=== PATIENT | male | born 1970 | race American Indian/Alaskan Native ===

== ENCOUNTER 2019-06-20 00:52 | Emergency (ER) | payer BC ==
[~2019-06-20] VITALS: Ht 180.3 cm; Wt 147.0 kg
[2019-06-20] MEDS ORDERED: cyclobenzaprine 10mg tablet PO ONE (01:55)
[2019-06-20] MEDS ORDERED: morphine 10mg/ml inj. IM ONE (01:55)
[2019-06-20] MEDS ORDERED: ketorolac trometh. 30mg/ml inj. IM ONE (01:55)
[2019-06-20] MEDS ORDERED: CYCL-1 PO (02:58)
[2019-06-20] MEDS ORDERED: HYDR-4353 PO (02:58)
[2019-06-20 03:12] VITALS: BP 139/72
== END 2019-06-20 03:15 | disposition home or self-care (01) ==
LOC: ER 00:52
DX: S39.012A Strain of muscle, fascia and tendon of lower back, initial encounter (principal); I10 Essential (primary) hypertension; F10.99 Alcohol use, unspecified with unspecified alcohol-induced disorder; Z79.899 Other long term (current) drug therapy; Y90.9 Presence of alcohol in blood, level not specified; X58.XXXA Exposure to other specified factors, initial encounter; Y93.89 Activity, other specified; Y92.89 Other specified places as the place of occurrence of the external cause; Y99.8 Other external cause status
CPT/HCPCS: 96372; 99283; J1885; J2270

== ENCOUNTER 2019-09-09 16:22 | Emergency (ER) | payer BC, OTHER ==
[~2019-09-09] VITALS: Ht 182.9 cm; Wt 159.0 kg
[~2019-09-09 16:22] MED LIST: CYCL-1 PO; LIDOcaine 1% W/epiNEPHrine 1:100,000 20ml vial ONE
[2019-09-09 16:36] VITALS: BP 176/87
== END 2019-09-09 18:12 | disposition home or self-care (01) ==
LOC: ER 16:23
DX: S01.81XA Laceration without foreign body of other part of head, initial encounter (principal); S40.211A Abrasion of right shoulder, initial encounter; I10 Essential (primary) hypertension; F10.99 Alcohol use, unspecified with unspecified alcohol-induced disorder; Z79.899 Other long term (current) drug therapy; W26.8XXA Contact with other sharp object(s), not elsewhere classified, initial encounter; Y93.89 Activity, other specified; Y92.89 Other specified places as the place of occurrence of the external cause; Y99.8 Other external cause status; Y90.9 Presence of alcohol in blood, level not specified
CPT/HCPCS: 12011; 99283

== ENCOUNTER 2021-04-19 22:00 | Inpatient (IN) | payer BC, OTHER ==
[~2021-04-19] VITALS: Ht 180.3 cm; Wt 125.0 kg
[~2021-04-19 22:00] MED LIST changes: -LIDOcaine 1% W/epiNEPHrine 1:100,000 20ml vial ONE
[2021-04-19] MEDS ORDERED: normal saline 1000ML IV soln IVB ONE (22:50)
[2021-04-19] MEDS ORDERED: iohexol 350MG/ML 100ml bottle IV ONE (22:58)
[2021-04-19 23:12] LABS: BASOPHILS # (AUTO) 0.1 X10'3 (0-0.2); EOSINOPHILS # (AUTO) 0.1 X10'3 (0-0.9); HEMOGLOBIN 10.7 g/dl (14.0-17.9); LYMPHOCYTES # (AUTO) 0.6 X10'3 (1.1-4.8); LYMPHOCYTES % (AUTO) 4.7 % (21-51); MONOCYTES # (AUTO) 1.3 X10'3 (0-0.9)
[2021-04-19 23:13] LABS: EOSINOPHILS % (AUTO) 0.8 % (0-6); HEMATOCRIT 33.8 % (42.0-52.0); MEAN CORPUSCULAR HEMOGLOBIN 24.6 PG (27.0-31.0); MEAN CORPUSCULAR HGB CONC 31.7 g/dL (33.0-36.5); MEAN CORPUSCULAR VOLUME 77.5 FL (78-98); MEAN PLATELET VOLUME 7.2 FL (7.4-10.4); NEUTROPHILS # (AUTO) 9.8 X10'3 (1.8-7.7); NEUTROPHILS % (AUTO) 82.5 % (42-75); PLATELET COUNT 640 X10'3 (140-440); RED BLOOD COUNT 4.36 X10'6 (4.70-6.10); RED CELL DISTRIBUTION WIDTH 17.3 % (11.5-14.5); WHITE BLOOD COUNT 11.9 X10'3 (4.5-11.0)
[2021-04-19 23:25] LABS: D-DIMER 1.33 MG/L FEU (0-0.50)
[2021-04-19 23:31] LABS: ALANINE AMINOTRANSFERASE 38 U/L (12-78); ALBUMIN 2.4 G/DL (3.4-5.0); ALBUMIN/GLOBULIN RATIO 0.4 (1.1-1.5); ALKALINE PHOSPHATASE 109 IU/L (46-116); ANION GAP 6 (8-16); ASPARTATE AMINO TRANSFERASE 45 U/L (10-37); BILIRUBIN,TOTAL 0.4 MG/DL (0.1-1.0); BLOOD UREA NITROGEN 16 MG/DL (7-18); BUN/CREATININE RATIO 12.2 (5.4-32.0); CHLORIDE 98 MMOL/L (99-107); CREATININE 1.31 MG/DL (0.60-1.10); GLUCOSE 107 MG/DL (70-104); SODIUM 134 MMOL/L (135-145); TOTAL CARBON DIOXIDE 29.6 MMOL/L (24-32); TOTAL PROTEIN 8.5 G/DL (6.4-8.2); TROPONIN I < 0.04 NG/ML (0.0-0.05); eGFR 58 ML/MIN
[2021-04-20] VITALS (8 sets, daily range): BP systolic 123–147; BP diastolic 53–90
[2021-04-20] MEDS ORDERED: CefTRIAXone 2gm/D5W 50ml BAG 50 ML IV ONE (02:35)
[2021-04-20] MEDS ORDERED: levoFLOXACIN-Levaquin 750MG/D5 150 ML IV ONE (02:35)
[2021-04-20] MEDS ORDERED: normal saline 1000ML IV soln IV ONE (02:35)
[2021-04-20] MEDS ORDERED: FERR-119 PO (03:26)
[2021-04-20] MEDS ORDERED: diphenhydrAMINE 50 mg/ml inj IV PRN (05:05)
[2021-04-20] MEDS ORDERED: magnesium hydroxide 30ml (MOM) UD suspension PO PRN (05:05)
[2021-04-20] MEDS ORDERED: HYDROcodone/acetaminophen 10/325mg tab PO PRN (05:05)
[2021-04-20] MEDS ORDERED: diphenhydrAMINE 25mg capsule PO PRN (05:05)
[2021-04-20] MEDS ORDERED: mag hydrox/Alum hydrox/simeth 30ml oral suspension PO PRN (05:05)
[2021-04-20] MEDS ORDERED: HYDROcodone/acetaminophen 5mg/325mg tablet PO PRN (05:05)
[2021-04-20] MEDS ORDERED: morphine 2 MG/ML inj. syringe IV PRN ×2 (05:05)
[2021-04-20] MEDS ORDERED: ondansetron 4mg rapidly disintigrating tab PO PRN (05:05)
[2021-04-20] MEDS ORDERED: acetaminophen 650mg rectal suppository RC PRN (05:05)
[2021-04-20] MEDS ORDERED: acetaminophen 325mg tablet PO PRN (05:05)
[2021-04-20] MEDS ORDERED: bisacodyl 10mg suppository rectal RC PRN (05:05)
[2021-04-20] MEDS ORDERED: ondansetron/PF 4mg/2ml inj IV PRN (05:05)
[2021-04-20] MEDS ORDERED: HYDROmorphone inj. 0.5 MG/0.5 ML DISP.SYRIN IV PRN (05:05)
[2021-04-20 06:32] LABS: PARTIAL THROMBOPLASTIN TIME 36 SECONDS (22-32)
[2021-04-20] MEDS: ferrous sulfate 325mg tablet PO SCH ×4 (10:40→21:17)
[2021-04-20] MEDS: docusate sod 100mg capsule PO SCH ×3 (10:40→21:19)
[2021-04-20] MEDS: normal saline 1000ml 1,000 ML IV SCH (10:41)
[2021-04-20] MEDS: pantoprazole 40mg Tablet.DR PO SCH (10:42)
--- NOTE | 2021-04-20 11:31 | NUR ---
IR AT BEDSIDE. Addendum: 04/20/21 at 1132 by Jojo Matias RN RN Amended: Links added.
[2021-04-20] MEDS: acetaminophen 325mg tablet PO PRN (12:18)
--- NOTE | 2021-04-20 12:20 | NUR ---
PT'S CHST TUBE A[facility] IS FULL, IR/MARCINO REPORTS TO CHANGE OUT THE [facility]. Addendum: 04/20/21 at 1221 by Jojo Matias RN, RN Amended: Links added.
--- NOTE | 2021-04-20 12:25 | NUR ---
PT'S CHEST TUBE ATRIUM CHANGED OUT. Addendum: 04/20/21 at 1255 by Jojo Matias RN RN Amended: Links added.
[2021-04-20 12:26] LABS: GLUCOSE,BODY FLUID 88 MG/DL; LDH,BODY FLUID 2200 U/L; TOTAL PROTEIN,BODY FLUID 4.5 G/DL
[2021-04-20 12:29] LABS: BFSOURCE RIGHT PLEURAL FLD; PLEURAL FLUID PH 7.491 (7.63-7.65)
[2021-04-20 12:40] LABS: BF RBC COUNT 405 /CU MM; BF WBC COUNT 1290 /CU MM (0-1000); BFAPPEAR CLEAR; BFCOLOR YELLOW; BFVOLUME 57.5 ML
[2021-04-20 12:45] LABS: LYMPHOCYTES,BODY FLUID 92 %; MONOCYTES,BODY FLUID 7 %; NEUTROPHILS,BODY FLUID 1 %
--- NOTE | 2021-04-20 15:38 | NUR ---
Pt is resting laying supine, respirations even and unlabored no sign of distress noted at this time. Addendum: 04/20/21 at 1539 by Jojo Matias RN, RN Amended: Links added.
--- NOTE | 2021-04-20 17:17 | NUR ---
PT TAKEN TO ROOM 354A ON HOSPITAL BED. REPORT GIVEN TO ROSA NICHOLS. Addendum: 04/20/21 at 1718 by Jojo Matias RN, RN Amended: Links added.
--- NOTE | 2021-04-20 17:20 | NUR ---
Received pt from pas unit, CT placed to suction, bed low call light in reach. Discussed POC pt & spouse verbalize understanding.
--- NOTE | 2021-04-20 19:15 | NUR ---
Patient in room [facility]. I have received report from SIMONE Zavala and had the opportunity to ask questions and assume patient care. Jesica Zavala and I looked over chest tube and it is low continue suction at the 400 l[address]. No signs of a leak.
--- NOTE | 2021-04-20 19:30 | NUR ---
Problems reprioritized. Patient report given, questions answered & plan of care reviewed with Cole.
[2021-04-21] VITALS: BP 132/79
[2021-04-21 06:12] LABS: BASOPHILS # (AUTO) 0.1 X10'3 (0-0.2); EOSINOPHILS # (AUTO) 0.1 X10'3 (0-0.9); MONOCYTES # (AUTO) 1.3 X10'3 (0-0.9); NEUTROPHILS # (AUTO) 9.2 X10'3 (1.8-7.7); WHITE BLOOD COUNT 11.3 X10'3 (4.5-11.0)
[2021-04-21 06:14] LABS: BASOPHILS % (AUTO) 0.9 % (0-1); EOSINOPHILS % (AUTO) 1.2 % (0-6); HEMATOCRIT 32.2 % (42.0-52.0); HEMOGLOBIN 10.1 g/dl (14.0-17.9); LYMPHOCYTES # (AUTO) 0.6 X10'3 (1.1-4.8); LYMPHOCYTES % (AUTO) 5.1 % (21-51); MEAN CORPUSCULAR HEMOGLOBIN 24.3 PG (27.0-31.0); MEAN CORPUSCULAR HGB CONC 31.2 g/dL (33.0-36.5); MEAN CORPUSCULAR VOLUME 77.8 FL (78-98); MEAN PLATELET VOLUME 7.7 FL (7.4-10.4); MONOCYTES % (AUTO) 11.2 % (2-12); NEUTROPHILS % (AUTO) 81.6 % (42-75); PLATELET COUNT 489 X10'3 (140-440); RED BLOOD COUNT 4.14 X10'6 (4.70-6.10); RED CELL DISTRIBUTION WIDTH 17.4 % (11.5-14.5)
--- NOTE | 2021-04-21 06:21 | NUR ---
Problems reprioritized. Patient report given, questions answered & plan of care reviewed with SIMONE Zavala.
--- NOTE | 2021-04-21 06:39 | NUR ---
Patient in room [facility]. I have received report from Serge Galvan and had the opportunity to ask questions and assume patient care.
[2021-04-21 06:47] LABS: ALANINE AMINOTRANSFERASE 29 U/L (12-78); ALBUMIN/GLOBULIN RATIO 0.4 (1.1-1.5); ALKALINE PHOSPHATASE 95 IU/L (46-116); ANION GAP 10 (8-16); BILIRUBIN,TOTAL 0.4 MG/DL (0.1-1.0); BLOOD UREA NITROGEN 18 MG/DL (7-18); BUN/CREATININE RATIO 16.8 (5.4-32.0); CHLORIDE 103 MMOL/L (99-107); CHOL/HDL RATIO 3.1 (0.00-4.99); CHOLESTEROL 123 MG/DL (0-200); CREATININE 1.07 MG/DL (0.60-1.10); GLUCOSE 96 MG/DL (70-104); HDL CHOLESTEROL 40 MG/DL (35-60); LDL CHOLESTEROL 73 MG/DL (50-100); MAGNESIUM 2.2 MG/DL (1.5-2.4); SODIUM 140 MMOL/L (135-145); TOTAL CARBON DIOXIDE 27.5 MMOL/L (24-32); TOTAL PROTEIN 7.5 G/DL (6.4-8.2); TRIGLYCERIDES 65 MG/DL (20-135); eGFR 74 ML/MIN
[2021-04-21 06:59] LABS: ASPARTATE AMINO TRANSFERASE 50 U/L (10-37); PHOSPHORUS 3.7 MG/DL (2.3-4.5); POTASSIUM 4.2 MMOL/L (3.5-5.1)
[2021-04-21 07:00] VITALS: BP 121/80
[2021-04-21 07:02] LABS: CALCIUM 12.1 MG/DL (8.5-10.1)
[2021-04-21 07:03] LABS: HEMOGLOBIN A1C 6.2 % (4.5-6.2)
[2021-04-21] MEDS: pantoprazole 40mg Tablet.DR PO SCH (09:11)
[2021-04-21] MEDS: ferrous sulfate 325mg tablet PO SCH ×4 (09:12→20:33)
[2021-04-21] MEDS: docusate sod 100mg capsule PO SCH ×2 (09:12→20:19)
[2021-04-21 09:17] LABS: ANISOCYTOSIS 1+; MICROCYTOSIS 1+; PLATELET ESTIMATE INCREASED
[2021-04-21 09:18] LABS: ELLIPTOCYTES FEW
[2021-04-21 11:00] VITALS: BP 141/84
[2021-04-21 18:00] VITALS: BP 129/75
--- NOTE | 2021-04-21 18:57 | NUR ---
Patient in room [facility] 354A. I have received report from SIMONE Zavala and had the opportunity to ask questions and assume patient care.
--- NOTE | 2021-04-21 19:12 | NUR ---
Problems reprioritized. Patient report given, questions answered & plan of care reviewed with SIMONE Castro.
[2021-04-21] MEDS: normal saline 1000ml 1,000 ML IV SCH ×2 (20:19→22:09)
[2021-04-22] VITALS: BP 120/74
[2021-04-22 06:18] LABS: BASOPHILS # (AUTO) 0.1 X10'3 (0-0.2); BASOPHILS % (AUTO) 1.1 % (0-1); EOSINOPHILS # (AUTO) 0.3 X10'3 (0-0.9); EOSINOPHILS % (AUTO) 2.7 % (0-6); HEMATOCRIT 30.8 % (42.0-52.0); HEMOGLOBIN 9.9 g/dl (14.0-17.9); LYMPHOCYTES # (AUTO) 0.5 X10'3 (1.1-4.8); LYMPHOCYTES % (AUTO) 5.1 % (21-51); MEAN CORPUSCULAR HEMOGLOBIN 24.9 PG (27.0-31.0); MEAN CORPUSCULAR VOLUME 77.7 FL (78-98); MEAN PLATELET VOLUME 7.2 FL (7.4-10.4); MONOCYTES # (AUTO) 1.2 X10'3 (0-0.9); MONOCYTES % (AUTO) 12.1 % (2-12); NEUTROPHILS # (AUTO) 7.6 X10'3 (1.8-7.7); PLATELET COUNT 491 X10'3 (140-440); RED BLOOD COUNT 3.97 X10'6 (4.70-6.10); RED CELL DISTRIBUTION WIDTH 17.5 % (11.5-14.5); WHITE BLOOD COUNT 9.6 X10'3 (4.5-11.0)
[2021-04-22 06:48] LABS: ALANINE AMINOTRANSFERASE 25 U/L (12-78); ALBUMIN/GLOBULIN RATIO 0.4 (1.1-1.5); ALKALINE PHOSPHATASE 94 IU/L (46-116); ANION GAP 7 (8-16); ASPARTATE AMINO TRANSFERASE 31 U/L (10-37); BILIRUBIN,TOTAL 0.4 MG/DL (0.1-1.0); BLOOD UREA NITROGEN 19 MG/DL (7-18); BUN/CREATININE RATIO 16.2 (5.4-32.0); CHLORIDE 104 MMOL/L (99-107); CREATININE 1.17 MG/DL (0.60-1.10); GLUCOSE 92 MG/DL (70-104); POTASSIUM 3.5 MMOL/L (3.5-5.1); SODIUM 140 MMOL/L (135-145); TOTAL CARBON DIOXIDE 28.8 MMOL/L (24-32); TOTAL PROTEIN 7.1 G/DL (6.4-8.2); eGFR 67 ML/MIN
--- NOTE | 2021-04-22 06:48 | NUR ---
Problems reprioritized. Patient report given, questions answered & plan of care reviewed with SIMONE Baker.
--- NOTE | 2021-04-22 06:50 | NUR ---
Patient in room [facility]. I have received report from Gloria NICHOLS and had the opportunity to ask questions and assume patient care.
[2021-04-22 06:58] LABS: CALCIUM 12.4 MG/DL (8.5-10.1)
--- NOTE | 2021-04-22 07:03 | NUR ---
PAGER ID: [phone] MESSAGE: re: 354A, Fermin Garsia Critical value Calcium 12.4. Orders? Thank you, Olivia [phone] Will continue to monitor. association executive notified
[2021-04-22 07:30] VITALS: BP 131/75
[2021-04-22] MEDS: pantoprazole 40mg Tablet.DR PO SCH (08:57)
[2021-04-22] MEDS: ferrous sulfate 325mg tablet PO SCH ×4 (08:57→20:59)
[2021-04-22] MEDS: docusate sod 100mg capsule PO SCH ×2 (08:57→20:59)
[2021-04-22] MEDS ORDERED: ALTEPLASE IV ONE (09:50)
[2021-04-22] MEDS ORDERED: NORMAL SALINE IV ONE (09:50)
--- NOTE | 2021-04-22 10:00 | NUR ---
Tpa administered into chest tube by DEVANTE Dumont Will continue to monitor.
[2021-04-22 11:00] VITALS: BP 147/80
[2021-04-22] MEDS: normal saline 1000ml 1,000 ML IV SCH (12:01)
[2021-04-22 12:54] VITALS: BP 134/80
[2021-04-22] MEDS: acetaminophen 325mg tablet PO PRN (14:50)
--- NOTE | 2021-04-22 15:00 | NUR ---
Chest tube returned to suction as ordered per MD orders. Will continue to monitor.
--- NOTE | 2021-04-22 16:45 | NUR ---
PAGER ID: [phone] MESSAGE: re: room 354A, Fermin Garsia Patient states he's never had a colonoscopy. Olivia [phone]
--- NOTE | 2021-04-22 17:51 | NUR ---
PAGER ID: [phone] MESSAGE: re: room 354A Fermin Garsia Please call regarding CT orders. thank you, Olivia [phone]
[2021-04-22 17:55] LABS: % IRON SATURATION 14 % (11-46); IRON 20 UG/DL (53-167); TOTAL IRON BINDING CAPACITY 140 UG/DL (259-388)
[2021-04-22 18:00] VITALS: BP 142/84
[2021-04-22] MEDS ORDERED: diatr meglu/diatrizoate 30ml oral sol.-(3 dose) bottle PO SCH ×2 (18:00→21:00)
--- NOTE | 2021-04-22 18:26 | NUR ---
room 354A, Fermin Garsia please clarify: CT of abdomen in a.m.? because you typed in the comments "bowel prep, pt never had a colonoscopy". Thank you, Olivia [phone] Per phone call from Dr Forbes, she will d/c orders for a.m. CT until she speaks with the GI doctor. shift manager informed. Will continue to monitor.
--- NOTE | 2021-04-22 18:33 | NUR ---
Problems reprioritized. Patient report given, questions answered & plan of care reviewed with Cole NICHOLS.
--- NOTE | 2021-04-22 19:35 | NUR ---
Patient in room [facility]. I have received report from SIMONE Baker and had the opportunity to ask questions and assume patient care.
--- NOTE | 2021-04-22 19:37 | NUR ---
I have received report from SIMONE Baker and had the opportunity to ask questions and assume patient care. Addendum: 04/22/21 at 1943 by Cole Eagle RN SIMONE Restrepo and I are assuming care of patient
[2021-04-23] VITALS: BP 133/76
[2021-04-23] MEDS: normal saline 1000ml 1,000 ML IV SCH ×3 (00:25→20:48)
[2021-04-23 06:00] LABS: BASOPHILS # (AUTO) 0.1 X10'3 (0-0.2); BASOPHILS % (AUTO) 0.8 % (0-1); EOSINOPHILS # (AUTO) 0.3 X10'3 (0-0.9); EOSINOPHILS % (AUTO) 2.7 % (0-6); HEMATOCRIT 29.7 % (42.0-52.0); HEMOGLOBIN 9.5 g/dl (14.0-17.9); LYMPHOCYTES # (AUTO) 0.5 X10'3 (1.1-4.8); MEAN CORPUSCULAR HEMOGLOBIN 24.5 PG (27.0-31.0); MEAN CORPUSCULAR HGB CONC 32.1 g/dL (33.0-36.5); MEAN CORPUSCULAR VOLUME 76.3 FL (78-98); MEAN PLATELET VOLUME 7.3 FL (7.4-10.4); MONOCYTES # (AUTO) 1.2 X10'3 (0-0.9); MONOCYTES % (AUTO) 12.9 % (2-12); NEUTROPHILS # (AUTO) 7.3 X10'3 (1.8-7.7); NEUTROPHILS % (AUTO) 78.6 % (42-75); PLATELET COUNT 486 X10'3 (140-440); RED BLOOD COUNT 3.89 X10'6 (4.70-6.10); RED CELL DISTRIBUTION WIDTH 17.6 % (11.5-14.5); WHITE BLOOD COUNT 9.3 X10'3 (4.5-11.0)
[2021-04-23 06:11] LABS: ALANINE AMINOTRANSFERASE 23 U/L (12-78); ALBUMIN 1.9 G/DL (3.4-5.0); ALBUMIN/GLOBULIN RATIO 0.4 (1.1-1.5); ALKALINE PHOSPHATASE 94 IU/L (46-116); ANION GAP 4 (8-16); ASPARTATE AMINO TRANSFERASE 32 U/L (10-37); BILIRUBIN,TOTAL 0.3 MG/DL (0.1-1.0); BLOOD UREA NITROGEN 21 MG/DL (7-18); BUN/CREATININE RATIO 17.2 (5.4-32.0); CHLORIDE 106 MMOL/L (99-107); CREATININE 1.22 MG/DL (0.60-1.10); GLUCOSE 91 MG/DL (70-104); POTASSIUM 3.6 MMOL/L (3.5-5.1); SODIUM 139 MMOL/L (135-145); TOTAL CARBON DIOXIDE 29.5 MMOL/L (24-32); TOTAL PROTEIN 6.7 G/DL (6.4-8.2); eGFR 63 ML/MIN
[2021-04-23 06:14] LABS: CALCIUM 12.2 MG/DL (8.5-10.1)
--- NOTE | 2021-04-23 06:31 | NUR ---
Problems reprioritized. Patient report given, questions answered & plan of care reviewed with SIMONE Mata.
--- NOTE | 2021-04-23 06:33 | NUR ---
I agree with charting, assessment, and report done by SIMONE Restrepo new hire
--- NOTE | 2021-04-23 06:43 | NUR ---
Patient in room [facility]. I have received report from SIMONE Galvan and had the opportunity to ask questions and assume patient care.
[2021-04-23 07:00] VITALS: BP 124/77
[2021-04-23] MEDS: pantoprazole 40mg Tablet.DR PO SCH (08:03)
[2021-04-23] MEDS: docusate sod 100mg capsule PO SCH ×2 (08:03→20:49)
[2021-04-23] MEDS: ferrous sulfate 325mg tablet PO SCH ×4 (08:03→20:49)
[2021-04-23] MEDS ORDERED: NORMAL SALINE IV ONE (08:30)
[2021-04-23] MEDS ORDERED: ALTEPLASE IV ONE (08:30)
[2021-04-23] MEDS ORDERED: ANGIO IV ONE (08:30)
--- NOTE | 2021-04-23 10:08 | NUR ---
Bryan Dumont in to see patient and administer TPA in chest tube. No complaints from patient. Will continue to suhail.
[2021-04-23 12:19] VITALS: BP 116/54
[2021-04-23 12:20] VITALS: BP 133/75
[2021-04-23] MEDS: acetaminophen 325mg tablet PO PRN (13:28)
--- NOTE | 2021-04-23 15:00 | NUR ---
Stopcock to chest tube turned back to inline flow.
[2021-04-23] MEDS ORDERED: iohexol 300mg/ml 100ml inj. ONE (16:48)
[2021-04-23 18:00] VITALS: BP 128/78
--- NOTE | 2021-04-23 18:44 | NUR ---
Problems reprioritized. Patient report given, questions answered & plan of care reviewed with SIMONE Lux.
[2021-04-24] VITALS: BP 129/64
--- NOTE | 2021-04-24 04:29 | NUR ---
Patient in room [facility]. I have received report from Onesimo NICHOLS and had the opportunity to ask questions and assume patient care.
[2021-04-24 06:05] LABS: BASOPHILS # (AUTO) 0.1 X10'3 (0-0.2); BASOPHILS % (AUTO) 0.9 % (0-1); EOSINOPHILS # (AUTO) 0.4 X10'3 (0-0.9); EOSINOPHILS % (AUTO) 4.2 % (0-6); HEMOGLOBIN 9.4 g/dl (14.0-17.9); LYMPHOCYTES # (AUTO) 0.5 X10'3 (1.1-4.8); LYMPHOCYTES % (AUTO) 5.4 % (21-51); MEAN CORPUSCULAR HEMOGLOBIN 24.4 PG (27.0-31.0); MEAN CORPUSCULAR HGB CONC 31.5 g/dL (33.0-36.5); MEAN CORPUSCULAR VOLUME 77.4 FL (78-98); MEAN PLATELET VOLUME 7.1 FL (7.4-10.4); MONOCYTES # (AUTO) 1.1 X10'3 (0-0.9); NEUTROPHILS # (AUTO) 6.8 X10'3 (1.8-7.7); NEUTROPHILS % (AUTO) 76.5 % (42-75); PLATELET COUNT 489 X10'3 (140-440); RED BLOOD COUNT 3.87 X10'6 (4.70-6.10); RED CELL DISTRIBUTION WIDTH 17.3 % (11.5-14.5); WHITE BLOOD COUNT 8.8 X10'3 (4.5-11.0)
[2021-04-24 06:25] LABS: ALANINE AMINOTRANSFERASE 30 U/L (12-78); ALBUMIN 1.8 G/DL (3.4-5.0); ALBUMIN/GLOBULIN RATIO 0.4 (1.1-1.5); ALKALINE PHOSPHATASE 95 IU/L (46-116); ANION GAP 6 (8-16); ASPARTATE AMINO TRANSFERASE 35 U/L (10-37); BILIRUBIN,TOTAL 0.4 MG/DL (0.1-1.0); BLOOD UREA NITROGEN 17 MG/DL (7-18); BUN/CREATININE RATIO 15.3 (5.4-32.0); CALCIUM 11.6 MG/DL (8.5-10.1); CHLORIDE 104 MMOL/L (99-107); CREATININE 1.11 MG/DL (0.60-1.10); GLUCOSE 87 MG/DL (70-104); POTASSIUM 3.6 MMOL/L (3.5-5.1); SODIUM 139 MMOL/L (135-145); TOTAL CARBON DIOXIDE 28.6 MMOL/L (24-32); TOTAL PROTEIN 6.8 G/DL (6.4-8.2); eGFR 71 ML/MIN
--- NOTE | 2021-04-24 06:30 | NUR ---
Patient in room [facility]. I have received report from Jose J NICHOLS and had the opportunity to ask questions and assume patient care.
[2021-04-24 07:00] VITALS: BP 120/53
[2021-04-24] MEDS: normal saline 1000ml 1,000 ML IV SCH ×2 (07:29→16:11)
[2021-04-24] MEDS: ferrous sulfate 325mg tablet PO SCH ×4 (07:31→20:00)
[2021-04-24] MEDS: pantoprazole 40mg Tablet.DR PO SCH (07:31)
[2021-04-24] MEDS: docusate sod 100mg capsule PO SCH ×2 (07:31→19:59)
[2021-04-24] MEDS: CefTRIAXone 2gm/D5W 50ml BAG 50 ML IV SCH (07:31)
[2021-04-24 07:41] VITALS: BP 131/78
[2021-04-24 11:17] LABS: OCCULT BLOOD STOOL NEGATIVE (Neg)
[2021-04-24 12:00] VITALS: BP 136/79
--- NOTE | 2021-04-24 15:41 | NUR ---
Per Dr Forbes when patient is discharged the discharging doctor needs to contact Dr Reid and let him know so he can schedule patient for out patient Bronchoscopy.
[2021-04-24 18:00] VITALS: BP 150/77
--- NOTE | 2021-04-24 18:27 | NUR ---
Problems reprioritized. Patient report given, questions answered & plan of care reviewed with Jose J NICHOLS.
--- NOTE | 2021-04-24 18:35 | NUR ---
Patient in room [facility]. I have received report from Twila NICHOLS and had the opportunity to ask questions and assume patient care.
[2021-04-24] MEDS: lactobacillus rhamnosus 10,000 MMU CELLS/CAPSULE PO SCH (19:59)
[2021-04-25] VITALS: BP 137/80
[2021-04-25 05:55] LABS: BASOPHILS # (AUTO) 0.1 X10'3 (0-0.2); BASOPHILS % (AUTO) 1.1 % (0-1); EOSINOPHILS # (AUTO) 0.3 X10'3 (0-0.9); HEMATOCRIT 29.7 % (42.0-52.0); HEMOGLOBIN 9.4 g/dl (14.0-17.9); LYMPHOCYTES # (AUTO) 0.4 X10'3 (1.1-4.8); LYMPHOCYTES % (AUTO) 4.8 % (21-51); MEAN CORPUSCULAR HEMOGLOBIN 24.5 PG (27.0-31.0); MEAN CORPUSCULAR HGB CONC 31.6 g/dL (33.0-36.5); MEAN CORPUSCULAR VOLUME 77.6 FL (78-98); MEAN PLATELET VOLUME 7.3 FL (7.4-10.4); MONOCYTES # (AUTO) 1.2 X10'3 (0-0.9); MONOCYTES % (AUTO) 14.3 % (2-12); NEUTROPHILS # (AUTO) 6.5 X10'3 (1.8-7.7); NEUTROPHILS % (AUTO) 75.8 % (42-75); PLATELET COUNT 463 X10'3 (140-440); RED BLOOD COUNT 3.83 X10'6 (4.70-6.10); RED CELL DISTRIBUTION WIDTH 17.2 % (11.5-14.5); WHITE BLOOD COUNT 8.5 X10'3 (4.5-11.0)
[2021-04-25 06:35] LABS: ALANINE AMINOTRANSFERASE 25 U/L (12-78); ALBUMIN 1.8 G/DL (3.4-5.0); ALBUMIN/GLOBULIN RATIO 0.4 (1.1-1.5); ALKALINE PHOSPHATASE 100 IU/L (46-116); ANION GAP 7 (8-16); ASPARTATE AMINO TRANSFERASE 34 U/L (10-37); BILIRUBIN,TOTAL 0.3 MG/DL (0.1-1.0); BLOOD UREA NITROGEN 16 MG/DL (7-18); BUN/CREATININE RATIO 15.5 (5.4-32.0); CALCIUM 11.6 MG/DL (8.5-10.1); CHLORIDE 105 MMOL/L (99-107); CREATININE 1.03 MG/DL (0.60-1.10); GLUCOSE 89 MG/DL (70-104); POTASSIUM 3.4 MMOL/L (3.5-5.1); SODIUM 141 MMOL/L (135-145); TOTAL CARBON DIOXIDE 29.4 MMOL/L (24-32); TOTAL PROTEIN 6.6 G/DL (6.4-8.2); eGFR 77 ML/MIN
--- NOTE | 2021-04-25 06:40 | NUR ---
Problems reprioritized. Patient report given, questions answered & plan of care reviewed with Twila NICHOLS.
[2021-04-25 07:00] VITALS: BP 132/82
[2021-04-25] MEDS: docusate sod 100mg capsule PO SCH ×2 (07:15→20:00)
[2021-04-25] MEDS: lactobacillus rhamnosus 10,000 MMU CELLS/CAPSULE PO SCH ×2 (07:15→20:00)
[2021-04-25] MEDS: ferrous sulfate 325mg tablet PO SCH ×4 (07:15→21:00)
[2021-04-25] MEDS: CefTRIAXone 2gm/D5W 50ml BAG 50 ML IV SCH (07:15)
[2021-04-25] MEDS: pantoprazole 40mg Tablet.DR PO SCH (07:15)
[2021-04-25] MEDS ORDERED: magnesium 4gm in 100ml NS 100 ML IV PRN (10:30)
[2021-04-25] MEDS ORDERED: potassium Cl 20 mEq SR tablet PO PRN (10:30)
[2021-04-25] MEDS ORDERED: magnesium Cl slow-release 64mg tablet PO PRN (10:30)
[2021-04-25] MEDS ORDERED: potassium Cl 40MEQ/1/2NS 520ml 520 ML IV PRN (10:30)
--- NOTE | 2021-04-25 10:32 | NUR ---
Received orders from Dr Blevins for add on Mg , Electrolyte protocol and chest xray in am
--- NOTE | 2021-04-25 10:57 | NUR ---
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 Currently has chest tube in place. Pt able to eat well, mostly 75-100% of meals on Regular diet meeting needs. No N/V/D noted, LBM 04/24. No nutrition intervention implemented at this time, will continue to monitor. Recs: 1. Continue Regular diet as tolerated 2. Bowel care per rx 3. Weekly wts Addendum: 04/25/21 at [address] Amended: Links added.
[2021-04-25 11:00] VITALS: BP 135/85
[2021-04-25] MEDS: normal saline 1000ml 1,000 ML IV SCH ×3 (11:01→23:17)
[2021-04-25 11:15] LABS: MAGNESIUM 2.2 MG/DL (1.5-2.4)
[2021-04-25 12:15] LABS: CARBOHYDRATE ANTIGEN 19-9 <2 U/mL (0-35); CARCINOEMBRYONIC ANTIGEN 0.6 ng/mL (0.0-4.7)
[2021-04-25] MEDS: potassium Cl 20 mEq SR tablet PO PRN ×3 (12:35→23:17)
[2021-04-25] MEDS ORDERED: furosemide 40mg/4ml inj IV ONE (15:45)
[2021-04-25 16:05] VITALS: BP 133/82
--- NOTE | 2021-04-25 18:31 | NUR ---
Problems reprioritized. Patient report given, questions answered & plan of care reviewed with Neyda NICHOLS.
[2021-04-25 19:00] VITALS: BP 120/75
[2021-04-25] MEDS: K and/or MAG REPLACEMENT MC SCH ×2 (20:00→23:23)
[2021-04-26 00:05] VITALS: BP 122/74
--- NOTE | 2021-04-26 06:59 | NUR ---
Patient in room [facility]A. I have received report from SIMONE AVALOS and had the opportunity to ask questions and assume patient care
[2021-04-26 07:00] VITALS: BP 139/79
[2021-04-26] MEDS: CefTRIAXone 2gm/D5W 50ml BAG 50 ML IV SCH (07:18)
[2021-04-26] MEDS: docusate sod 100mg capsule PO SCH (07:26)
[2021-04-26] MEDS: lactobacillus rhamnosus 10,000 MMU CELLS/CAPSULE PO SCH (07:26)
[2021-04-26] MEDS: ferrous sulfate 325mg tablet PO SCH ×2 (07:26→13:17)
[2021-04-26] MEDS: pantoprazole 40mg Tablet.DR PO SCH (07:26)
[2021-04-26 08:00] VITALS: BP 139/79
[2021-04-26] MEDS: K and/or MAG REPLACEMENT MC SCH (08:00)
--- NOTE | 2021-04-26 08:42 | NUR ---
Patient in room [facility]. I have received report from Anne NICHOLS and had the opportunity to ask questions and assume patient care.
[2021-04-26 09:55] LABS: BASOPHILS # (AUTO) 0.1 X10'3 (0-0.2); EOSINOPHILS # (AUTO) 0.3 X10'3 (0-0.9); EOSINOPHILS % (AUTO) 2.9 % (0-6); HEMATOCRIT 31.5 % (42.0-52.0); HEMOGLOBIN 10.2 g/dl (14.0-17.9); LYMPHOCYTES # (AUTO) 0.4 X10'3 (1.1-4.8); LYMPHOCYTES % (AUTO) 4.3 % (21-51); MEAN CORPUSCULAR HGB CONC 32.6 g/dL (33.0-36.5); MEAN CORPUSCULAR VOLUME 76.6 FL (78-98); MONOCYTES # (AUTO) 0.8 X10'3 (0-0.9); MONOCYTES % (AUTO) 9.1 % (2-12); NEUTROPHILS # (AUTO) 7.1 X10'3 (1.8-7.7); NEUTROPHILS % (AUTO) 82.7 % (42-75); PLATELET COUNT 470 X10'3 (140-440); RED BLOOD COUNT 4.11 X10'6 (4.70-6.10); RED CELL DISTRIBUTION WIDTH 17.5 % (11.5-14.5); WHITE BLOOD COUNT 8.6 X10'3 (4.5-11.0)
[2021-04-26 10:19] LABS: ALANINE AMINOTRANSFERASE 29 U/L (12-78); ALBUMIN 1.9 G/DL (3.4-5.0); ALBUMIN/GLOBULIN RATIO 0.4 (1.1-1.5); ALKALINE PHOSPHATASE 115 IU/L (46-116); ANION GAP 8 (8-16); ASPARTATE AMINO TRANSFERASE 37 U/L (10-37); BILIRUBIN,TOTAL 0.3 MG/DL (0.1-1.0); BLOOD UREA NITROGEN 15 MG/DL (7-18); BUN/CREATININE RATIO 12.5 (5.4-32.0); CALCIUM 11.9 MG/DL (8.5-10.1); CHLORIDE 104 MMOL/L (99-107); GLUCOSE 133 MG/DL (70-104); POTASSIUM 3.6 MMOL/L (3.5-5.1); SODIUM 138 MMOL/L (135-145); TOTAL PROTEIN 7.2 G/DL (6.4-8.2); eGFR 65 ML/MIN
[2021-04-26 11:00] VITALS: BP 138/85
[2021-04-26] MEDS ORDERED: CEFD300C22 PO (11:43)
--- NOTE | 2021-04-26 14:10 | NUR ---
Pt DC to home with . Pt is A & O and in no apparent distress. pt and verbalize understanding of ALL discharge orders and the importance of following up with Dr Reid as an outpatient. pt educated on medication/antibiotics and making all antibiotics are taken. pt's IV was removed intact. and him help him get dress and was wheeled to the front where took him home.
== END 2021-04-26 14:10 | disposition home or self-care (01) | DRG 193 ==
LOC: ER 22:01 → ED HOLD 04-20 05:10 → PAS IN 04-20 06:48 → SUR 3N 04-20 17:18
PROVIDERS: ADMIT Family Medicine; ATTEND Family Medicine
PROC: B32T1ZZ Computerized Tomography (CT Scan) of Left Pulmonary Artery using Low Osmolar Contrast (ICD-10-PCS; 2021-04-19)
PROC: B3201ZZ Computerized Tomography (CT Scan) of Thoracic Aorta using Low Osmolar Contrast (ICD-10-PCS; 2021-04-19)
PROC: B32S1ZZ Computerized Tomography (CT Scan) of Right Pulmonary Artery using Low Osmolar Contrast (ICD-10-PCS; 2021-04-19)
PROC: 0W9930Z Drainage of Right Pleural Cavity with Drainage Device, Percutaneous Approach (ICD-10-PCS; principal; 2021-04-20)
PROC: 3E0L3GC Introduction of Other Therapeutic Substance into Pleural Cavity, Percutaneous Approach (ICD-10-PCS; 2021-04-22)
PROC: BW211ZZ Computerized Tomography (CT Scan) of Abdomen and Pelvis using Low Osmolar Contrast (ICD-10-PCS; 2021-04-23)
PROC: 3E0L3GC Introduction of Other Therapeutic Substance into Pleural Cavity, Percutaneous Approach (ICD-10-PCS; 2021-04-23)
DX: J18.9 Pneumonia, unspecified organism (principal); N17.0 Acute kidney failure with tubular necrosis; J90 Pleural effusion, not elsewhere classified; I31.3 Pericardial effusion (noninflammatory); E83.52 Hypercalcemia; Z20.822 Contact with and (suspected) exposure to COVID-19; N18.30 Chronic kidney disease, stage 3 unspecified; E87.6 Hypokalemia; R79.89 Other specified abnormal findings of blood chemistry; D63.8 Anemia in other chronic diseases classified elsewhere; R59.0 Localized enlarged lymph nodes; E86.0 Dehydration; I12.9 Hypertensive chronic kidney disease with stage 1 through stage 4 chronic kidney disease, or unspecified chronic kidney disease
CPT/HCPCS: 32557; 36415; 71045; 71275; 74177; 80053; 80061; 82272; 82330; 82378; 82945; 83036; 83540; 83550; 83605; 83615; 83735; 83880; 83970; 83986; 84100; 84145; 84157; 84484; 85008; 85025; 85379; 85610; 85730; 86301; 87040; 87070; 87635; 89051; 93005; 99285; C9803; G0378; J0696; J1940; J1956; J7030; Q9963; Q9967